=== PATIENT | female | born 1950 | race Caucasian/White ===

== ENCOUNTER → 2020-07-17 | Outpatient (CLI) | payer MEDICARE ==
--- NOTE | 2020-07-18 10:33 | RAD ---
EXAM: Bilateral digital screening mammogram with tomosynthesis. HISTORY: 69-year-old female presents for screening mammography. TECHNIQUE: Full-field digital craniocaudal and mediolateral oblique 2D and 3D tomosynthesis images of both breasts are obtained for evaluation. Computer aided detection was applied. COMPARISON: 07/11/2019 BREAST PARENCHYMAL DENSITY: Level C - Heterogeneously dense. FINDINGS: There is no new suspicious mass, microcalcification or region of architectural distortion. There are stable areas of asymmetry and nodularity within both breasts, allowing for differences in t echnique. There are multiple benign calcifications. IMPRESSION: BI-RADS Category 2: Benign finding(s). RECOMMENDATION: Annual mammography is recommended. If your mammogram demonstrates that you have dense breast tissue, which could hide abnormalities, and if you have other risk factors for breast cancer that have been identified, you might benefit from s upplemental screening tests that may be suggested by your ordering physician. Dense breast tissue, i n and of itself, is a relatively common condition. This information is not provided to cause undue c oncern, but rather to raise your awareness and to promote discussion with your physician regarding th e presence of other risk factors, in addition to dense breast tissue. A report of your mammography re sults will be sent to you and your physician. You should contact your physician if you have any ques tions or concerns regarding this report. Mammography is a sensitive method for finding small breast cancers, but it does not detect them all a nd is not a substitute for careful clinical examination. A negative mammogram does not negate a clin ically suspicious finding and should not result in delay in biopsying a clinically suspicious abnorma lity. PQRS compliance statement - Patient information was entered into a reminder system with a target due date for the next mammogram. "Our facility is accredited by the [employer] Mammography [employer]." Electronically signed by: Doris Rodriguez MD (07/18/2020 10:30 AM) [id number]
== END ==
LOC: MAMMO 14:46
PROVIDERS: ATTEND Family Medicine
DX: Z12.31 Encounter for screening mammogram for malignant neoplasm of breast (principal)
CPT/HCPCS: 77063; 77067

== ENCOUNTER → 2020-07-30 | Outpatient (CLI) | payer MEDICARE ==
--- NOTE | 2020-07-30 12:05 | RAD ---
EXAM: Chest, 2 views. HISTORY: Shortness of breath. COMPARISON: None. FINDINGS: 2 views of chest are obtained. There is no infiltrate, pleural effusion or pneumothorax. Th e heart is normal in size. There is a right cardiac pacemaker with leads in expected position. There are abandoned leads from a left cardiac pacemaker. IMPRESSION: No acute pulmonary finding. Electronically signed by: Doris Rodriguez MD (07/30/2020 12:02 PM) [id number]
== END ==
LOC: DXRAD 11:44
PROVIDERS: ATTEND Internal Medicine Cardiovascular Disease
DX: R91.8 Other nonspecific abnormal finding of lung field (principal); Z95.0 Presence of cardiac pacemaker
CPT/HCPCS: 71046

== ENCOUNTER → 2021-02-18 | Outpatient (CLI) | payer MEDICARE ==
[~2021-02-18] MED LIST: IOHEXOL 300 MG/ML 75 ML VIAL. IV ONE
--- NOTE | 2021-02-18 18:27 | RAD ---
PQRS Compliance Statement: One or more of the following individualized dose reduction techniques were utilized for this examinat ion: 1. Automated exposure control 2. Adjustment of the mA and/or kV according to patient size 3. Use of iterative reconstruction technique CT ABDOMEN+PELVIS WO+W Clinical Indication: Reason: BLOODY STOOLS, ABNORMAL LABS / Comparison: None. Technique: Helical CT imaging of the abdomen and pelvis is performed before and after 75 cc of Omnipa que 300 IV contrast. Oral contrast not administered. Findings: There is moderate centrilobular emphysema. Cardiac pacer wire. The cardiac size is normal. Cholecystectomy. The liver, spleen, pancreas, adrenal glands, and abdominal aorta are normal. There i s no renal calculus or hydronephrosis. No obvious abnormality of the stomach. Small fat-containing umbilical hernia. There is no small bowel obstruction. There is severe sigmoid colon diverticulosis. Appendix is not identified, no secondary signs of appendicitis. No abdominal adenopathy or free fluid. The urinary bladder is mostly decompressed. Hysterectomy. No pelvic free fluid. Vacuum disc phenomenon of L3/L4. IMPRESSION: 1. No acute abdominal or pelvic abnormality. 2. Severe sigmoid colon diverticulosis. Electronically signed by: Mathieu Dvae MD (02/18/2021 6:25 PM) [facility]
== END ==
LOC: CT 16:59
PROVIDERS: ATTEND Family Medicine
DX: K57.30 Diverticulosis of large intestine without perforation or abscess without bleeding (principal); J43.2 Centrilobular emphysema; Z90.49 Acquired absence of other specified parts of digestive tract; Z90.710 Acquired absence of both cervix and uterus
CPT/HCPCS: 74178; Q9967

== ENCOUNTER 2021-07-04 17:20 | Emergency (ER) | payer MEDICARE ==
[~2021-07-04] VITALS: Ht 167.6 cm; Wt 70.0 kg
[2021-07-04] MEDS ORDERED: IPRATRPIUM/ALBUTEROL 0.5/2.5MG 3 ML NEBU. ONE (17:39)
--- NOTE | 2021-07-04 18:21 | PHYS DOC ---
Adult General Chief Complaint Chief Complaint: DYSPNEA/RESPIRATOY DISTRESS HPI HPI Patient is a 70-year-old female patient presenting to the ED today complaining of cough, shortness of breath, wheezing. Patient states she stopped smoking a month ago and has intermittently been experiencing cough shortness of breath and wheezing. She states in the last couple days symptoms got worse hence came to the ED today. Denies any fever. Denies any chest pain. Reports receiving 2 Covid vaccines as well as a booster. (ROCKY JASON FINISHING AREA OPERATOR) Review of Systems Review of Systems Constitutional: Denies fever or chills [] Eyes: Denies change in visual acuity, redness, or eye pain [] HENT: Denies nasal congestion or sore throat [] Respiratory: Reports cough, shortness of breath, wheezing Cardiovascular: No additional information not addressed in HPI [] GI: Denies abdominal pain, nausea, vomiting, bloody stools or diarrhea [] : Denies dysuria or hematuria [] Musculoskeletal: Denies back pain or joint pain [] Integument: Denies rash or skin lesions [] Neurologic: Denies headache, focal weakness or sensory changes [] All other systems were reviewed and found to be within normal limits, except as documented in this note. (ROCKY JASON FINISHING AREA OPERATOR) Current Medications Current Medications Current Medications Medications (Trade) Dose Ordered Sig/Lluvia Start Time Stop Time Status Last Admin Dose Admin Albuterol/ Ipratropium (Duoneb) 3 ml 1X ONCE 07/04/21 18:30 12 18:31 UNV Dexamethasone Sodium Phosphate (Decadron) 10 mg 1X ONCE 07/04/21 18:30 07/04/21 18:31 (ROCKY JASON FINISHING AREA OPERATOR) Allergies Allergies Allergies Coded Allergies Type Severity Reaction Last Updated Verified No Known Drug Allergies 02/18/21 No (ROCKY JASON FINISHING AREA OPERATOR) Physical Exam Physical Exam Constitutional: Well developed, well nourished, no acute distress, non-toxic a ppearance. [] HENT: Normocephalic, atraumatic, bilateral external ears normal, oropharynx moist, no oral exudates, nose normal. [] Eyes: PERRLA, EOMI, conjunctiva normal, no discharge. [] Neck: Normal range of motion, no tenderness, supple, no stridor. [] Cardiovascular:Heart rate regular rhythm, no murmur [] Lungs & Thorax: Diffuse wheezing posteriorly as well as anteriorly Abdomen: Bowel sounds normal, soft, no tenderness, no masses, no pulsatile masses. [] Skin: Warm, dry, no erythema, no rash. [] Back: No tenderness, no CVA tenderness. [] Extremities: No tenderness, no cyanosis, no clubbing, ROM intact, no edema. [] Neurologic: Alert and oriented X 3, normal motor function, normal sensory function, no focal deficits noted. [] Psychologic: Affect normal, judgement normal, mood normal. [] (ROCKY JASON APRN) EKG EKG [address] Hinkle sinus rhythm heart rate 81 no STEMI [] (ROCKY JASON APRN) Radiology/Procedures Radiology/Procedures []PROCEDURE: CHEST AP ONLY INDICATION: Reason: cough / Spl. Instructions: / History: COMPARISON: July 30, 2020 FINDINGS: Single view of chest obtained. Right-sided pacemaker is seen as well as some pacemaker leads on the left. Hyperexpanded appearance of the lungs. Well-defined focal consolidation is not seen IMPRESSION: * No focal airspace consolidation. * Hyperexpanded lungs. Would correlate for possible causes such as asthma or emphysema. Electronically signed by: Joe Whitt MD (07/04/2021 6:36 PM) DESKTOP- [id number] DICTATED AND SIGNED BY: JOE WHITT MD DATE: 07/04/211833 CC: MICHAEL LUONG MD; ROCKY JASON APRN ~MTH0 0 (ROCKY JASON APRN) Heart Score C/O Chest Pain: N/A Risk Factors: Risk Factors: DM, Current or recent (<one month) smoker, HTN, HLP, family history of CAD, obesity. Risk Scores: Risk Factors: DM, Current or recent (<one month) smoker, HTN, HLP, family history of CAD, obesity. (ROCKY JASON APRN) Course & Med Decision Making Course & Med Decision Making Pertinent Labs and Imaging studies reviewed. (See chart for details) This is a 70-year-old female patient presenting to the ED today complaining of wheezing, cough, shortness of breath, symptoms intermittently for months but got worse in the last couple days. Arrives in the ED with O2 sats at 88% on room air. Was given a breathing treatment. Also given Decadron. O2 sats came up to 93% on room air. CBC, CMP with no acute findings, negative influenza A&B. Pending Covid 19 PCR test. Chest x-ray noted for emphysema or asthma. Discharge to home. Follow-up with PCP in the course of this week. Provided return precautions. (ROCKY JASON APRN) Dragon Disclaimer Dragon Disclaimer This electronic medical record was generated, in whole or in part, using a voice recognition dictation system. (ROCKY JASON APRN) Departure Departure: Impression: Primary Impression: Emphysema/COPD Additional Impression: Person under investigation for COVID-19 Disposition: 01 HOME / SELF CARE / HOMELESS Condition: STABLE Referrals: MICHAEL LUONG MD (PCP) follow up in one week Patient Instructions: Chronic Obstructive Pulmonary Disease Exacerbation Additional Instructions: You were evaluated in the emergency room. Take the prescribed medications as ordered. Quarantine yourself until we notify you of your COVID-19 PCR results. Follow-up with your doctor in the course of next week. Come back to the ED at any point symptoms worsen Scripts Guaifenesin/Codeine Phosphate (GUAIFENESIN-CODEINE SYRUP) 118 Ml Liquid 5 ML PO Q6HRS, #120 ML Prov: ROCKY JASON APRN 07/04/21 Guaifenesin/Dextromethorphan (TUSSIN DM LIQUID) 118 Ml Liquid 5 ML PO QID for cough and congestion for 18 Days, #360 ML 0 Refills Prov: ROCKY JASON APRN 07/04/21 Prednisone (PREDNISONE) 50 Mg Tablet 1 TAB PO DAILY, #5 TAB Prov: ROCKY JASON APRN 07/04/21 Albuterol Sulfate (VENTOLIN HFA INHALER) 18 Gm Hfa.aer.ad 1 PUFF IH PRN Q4HRS PRN for FOR ASTHMA, #1 EACH 0 Refills Prov: ROCKY JASON APRN 07/04/21 Attending Signature Attending Signature I have participated in the care of this patient and I have reviewed and agree with all pertinent clinical information above including history, exam, and recommendations. (SHEILA BAKER MD) Problem Qualifiers Primary Impression: Emphysema/COPD Emphysema type: other Qualified Codes: J43.8 - Other emphysema ROCKY JASON APRN Jul 04, 2021 18:21 SHEILA BAKER MD Jul 05, 2021 20:58
[2021-07-04] MEDS ORDERED: DEXAMETHASONE SOD PHOS 10 MG/ML VIAL. IVP ONE (18:30)
--- NOTE | 2021-07-04 18:38 | EKG ---
[address] [address] Test Date: 2021-07-04 Test Time: 18:33:40 Pat Name: MARLENE ARBOLEDA Department: Room: Gender: F Underwriting Clerk: LINH : 1950 Requested By: ROCKY JASON Order Number: [id number] Reading MD: Juan Loera MD Measurements Intervals [place] Rate: 81 P: 90 ID: [id number] QRS: 93 QRSD: 96 T: 53 QT: 376 QTc: 437 Interpretive Statements SINUS RHYTHM PACS Electronically Signed On 07-08-2021 13:28:02 RUG CUTTER by Juan Loera MD
--- NOTE | 2021-07-04 18:39 | RAD ---
INDICATION: Reason: cough / Spl. Instructions: / History: COMPARISON: July 30, 2020 FINDINGS: Single view of chest obtained. Right-sided pacemaker is seen as well as some pacemaker leads on the left. Hyperexpanded appearance of the lungs. Well-defined focal consolidation is not seen IMPRESSION: * No focal airspace consolidation. * Hyperexpanded lungs. Would correlate for possible causes such as asthma or emphysema. Electronically signed by: Garo Montoya MD (07/04/2021 6:36 PM) [id number]
[2021-07-04] MEDS ORDERED: IPRATRPIUM/ALBUTEROL 0.5/2.5MG 3 ML NEBU. NEB ONE (19:00)
[2021-07-04 19:15] LABS: BASO # 0.1 x10^3/uL (0.0-0.2); BASO % 1 % (0-3); EOS # 0.8 x10^3/uL (0.0-0.7); EOS % 9 % (0-3); HEMATOCRIT 41.8 % (36.0-47.0); HEMOGLOBIN 13.8 g/dL (12.0-15.5); LYMPH # 1.8 x10^3/uL (1.0-4.8); LYMPH % 20 % (24-48); MEAN CORPUSCULAR HEMOGLOBIN 30 pg (25-35); MEAN CORPUSCULAR HGB CONC 33 g/dL (31-37); MEAN CORPUSCULAR VOLUME 91 fL (79-100); MONO # 0.7 x10^3/uL (0.0-1.1); MONO % 8 % (0-9); NEUT # 5.5 x10^3uL (1.8-7.7); NEUT % 62 % (31-73); PLATELET COUNT 228 x10^3/uL (140-400); RED BLOOD COUNT 4.59 x10^6/uL (3.50-5.40); RED CELL DISTRIBUTION WIDTH 14.9 % (11.5-14.5); WHITE BLOOD COUNT 8.8 x10^3/uL (4.0-11.0)
[2021-07-04 19:41] LABS: CREATININE 0.6 mg/dL (0.6-1.0); GFR 98.8; POTASSIUM 4.5 mmol/L (3.5-5.1)
[2021-07-04 19:44] LABS: ALBUMIN 3.9 g/dL (3.4-5.0); ALBUMIN/GLOBULIN RATIO 1.1 (1.0-1.7); TOTAL BILIRUBIN 0.2 mg/dL (0.2-1.0); TOTAL PROTEIN 7.4 g/dL (6.4-8.2)
[2021-07-04 20:10] LABS: INFLUENZA A PATIENT NEGATIVE (NEGATIVE); INFLUENZA B PATIENT NEGATIVE (NEGATIVE)
[2021-07-04 20:28] VITALS: BP 135/82
[2021-07-04] MEDS ORDERED: PRED50TA PO (20:42)
[2021-07-04] MEDS ORDERED: GUAI118L53 PO (20:42)
[2021-07-04] MEDS ORDERED: ALBU2.5V8 IH (20:42)
[2021-07-04] MEDS ORDERED: GUAI118L13 PO (20:44)
== END 2021-07-04 21:15 | disposition home or self-care (01) ==
LOC: ER 17:20
DX: J44.9 Chronic obstructive pulmonary disease, unspecified (principal); Z20.822 Contact with and (suspected) exposure to COVID-19
CPT/HCPCS: 36415; 71045; 80053; 83605; 83880; 84484; 85025; 87040; 87804; 93005; 94640; 96374; 99285; C9803; J1100; U0003

== ENCOUNTER → 2021-08-02 | Outpatient (CLI) | payer MEDICARE ==
[2021-07-04 20:28] VITALS: BP 135/82
[~2021-08-02] MED LIST changes: +ALBU2.5V8 IH; +GUAI118L13 PO; +GUAI118L53 PO; -IOHEXOL 300 MG/ML 75 ML VIAL. IV ONE; +PRED50TA PO
--- NOTE | 2021-08-05 10:16 | RAD ---
INDICATION : Routine Screening. COMPARISON: Priors including June 2019 TECHNIQUE: Standard mammogram screening views of the bilateral breasts were obtained with 3D tomosynt hesis. CAD was utilized. FINDINGS: The breasts are heterogenous density. Scattered calcifications are identified without a definite new suspicious mass. IMPRESSION: BI-RADS Category 2: Benign findings. Recommend repeat screening examination in one year. The patient was placed into the recall system with a suggested recall date for follow up imaging. Mammography is the most sensitive method for finding small breast cancers, but it does not detect the m all and is not a substitute for careful clinical examination. A negative mammogram does not negate a clinically suspicious finding and should not result in delay in biopsying a clinically suspicious abnormality. Electronically signed by: Garo Montoya MD (08/05/2021 10:13 AM) [id number]
== END ==
LOC: MAMMO 09:47
PROVIDERS: ATTEND Family Medicine
DX: Z12.31 Encounter for screening mammogram for malignant neoplasm of breast (principal)
CPT/HCPCS: 77063; 77067